=== PATIENT | male | born 1955 | race Caucasian/White ===

== ENCOUNTER 2017-01-31 16:12 | Emergency (ER) | payer OTHER ==
[~2017-01-31] VITALS: Ht 160 cm; Wt 63.6 kg
[~2017-01-31 16:12] MED LIST: NOCURR
[2017-01-31 17:40] LABS: BASOPHILS % (AUTO) 0.4 % (0.0-2.0); EOSINOPHILS % (AUTO) 0.7 % (1.0-6.0); HEMATOCRIT 27.5 % (41-53); HEMOGLOBIN 9.7 g/dL (13.5-17.5); LYMPHOCYTES # (AUTO) 1.1 K/uL (1.0-4.8); LYMPHOCYTES % (AUTO) 15.3 % (22.0-44.0); MEAN CORPUSCULAR HEMOGLOBIN 30.8 pg (26.0-34.0); MEAN CORPUSCULAR HGB CONC 35.4 G/dL (31.0-37.0); MEAN CORPUSCULAR VOLUME 87 fL (80-100); MONOCYTES # (AUTO) 0.9 K/uL (0.1-1.0); MONOCYTES % (AUTO) 12.4 % (2.0-9.0); NEUTROPHILS # (AUTO) 5.2 K/uL (1.8-7.7); NEUTROPHILS % (AUTO) 71.2 % (40.0-70.0); PLATELET COUNT (AUTO) 127 K/uL (150-450); RED BLOOD CELL COUNT(AUTO) 3.16 MIL/uL (4.50-5.90); RED CELL DISTRIBUTION WIDTH 17.9 % (11.5-14.5); WHITE BLOOD COUNT (AUTO) 7.3 K/uL (4.5-11.0)
[2017-01-31 17:41] LABS: RBC MORPHOLOGY COMMENT ABNORMAL RBC MORPH
[2017-01-31 17:50] LABS: CALCIUM, TOTAL 7.2 mg/dL (8.8-10.5); CREATININE 1.24 mg/dL (0.60-1.30); POTASSIUM 3.5 mmol/L (3.5-5.1)
[2017-01-31 17:57] LABS: INR 2.9 (0.9-1.1); PROTHROMBIN TIME 30.7 SEC (9.4-11.6)
[2017-01-31 18:01] LABS: ALBUMIN 1.6 g/dL (3.4-5.0); BILIRUBIN,TOTAL 19.5 mg/dL (0.1-1.0); TOTAL PROTEIN, SERUM 7.4 g/dL (6.4-8.2)
[2017-01-31 19:10] VITALS: BP 118/72
[2017-01-31 19:43] LABS: APPEARANCE,URINE CLOUDY (CLEAR); GLUCOSE, URINE (UA) NEGATIVE (NEGATIVE); KETONES,URINE NEGATIVE (NEGATIVE); LEUKOCYTE ESTERASE ,URINE TRACE (NEGATIVE); OCCULT BLOOD,URINE NEGATIVE (NEGATIVE); PROTEIN,URINE NEGATIVE (NEGATIVE)
[2017-01-31 19:50] LABS: ADD UA MICROSCOPIC YES
[2017-01-31 20:10] LABS: FINE GRANULAR CASTS,URINE 0-2 /LPF (None Seen); RBC,URINE 0-2 /HPF (0-2); SQUAMOUS EPITHELIAL CELL,UR Rare /LPF (None Seen)
[2017-01-31 20:11] LABS: AMORPHOUS SEDIMENT,UR Few /LPF (None Seen); OTHER CASTS, URINE WBC CASTS 1+ /LPF (None Seen)
== END 2017-01-31 19:17 | disposition left against medical advice (07) ==
LOC: EMS 16:15
DX: K72.90 Hepatic failure, unspecified without coma (principal); K75.9 Inflammatory liver disease, unspecified; R17 Unspecified jaundice; F11.90 Opioid use, unspecified, uncomplicated; F17.210 Nicotine dependence, cigarettes, uncomplicated
CPT/HCPCS: 36415; 80053; 81001; 83690; 85025; 85610; 85730; 99285; G0480

== ENCOUNTER 2017-05-27 02:28 | Emergency (ER) | payer OTHER ==
[~2017-05-27] VITALS: Ht 162.6 cm; Wt 61.0 kg
[2017-05-27] MEDS ORDERED: PANT40TA25 PO (02:41)
[2017-05-27] MEDS ORDERED: FOLI1 PO (02:41)
[2017-05-27] MEDS ORDERED: ACET-784 PO (02:41)
[2017-05-27] MEDS ORDERED: URSO300C4 PO (02:41)
[2017-05-27] MEDS ORDERED: HYPR15DR23 OU (02:41)
[2017-05-27] MEDS ORDERED: FURO20 PO (02:41)
[2017-05-27] MEDS ORDERED: RIFAX550 PO (02:41)
[2017-05-27] MEDS ORDERED: MOM30 PO (02:41)
[2017-05-27] MEDS ORDERED: LACT1CAP62 PO (02:41)
[2017-05-27] MEDS ORDERED: BISA10S PR (02:41)
[2017-05-27] MEDS ORDERED: LACT30L PO (02:41)
[2017-05-27] MEDS ORDERED: MAGN500T4 PO (02:41)
[2017-05-27] MEDS ORDERED: CYCLOBENZAPRINE HCL 10 MG TABLET PO ONE (03:00)
[2017-05-27] MEDS ORDERED: KETOROLAC TROMETHAMINE 30 MG/ML VIAL IM ONE (03:00)
[2017-05-27 03:46] VITALS: BP 128/76
== END 2017-05-27 04:20 | disposition home or self-care (01) ==
LOC: EMS 02:29
DX: M62.830 Muscle spasm of back (principal); G89.29 Other chronic pain; F17.210 Nicotine dependence, cigarettes, uncomplicated; F11.10 Opioid abuse, uncomplicated; Z79.899 Other long term (current) drug therapy
CPT/HCPCS: 96372; 99283; J1885

== ENCOUNTER 2017-05-27 18:49 | Emergency (ER) | payer OTHER ==
[~2017-05-27] VITALS: Ht 162.6 cm; Wt 63.6 kg
[~2017-05-27 18:49] MED LIST changes: +ACET-784 PO; +BISA10S PR; +FOLI1 PO; +FURO20 PO; +HYPR15DR23 OU; +LACT1CAP62 PO; +LACT30L PO; +MAGN500T4 PO; +MOM30 PO; -NOCURR; +PANT40TA25 PO; +RIFAX550 PO; +URSO300C4 PO
[2017-05-27] MEDS ORDERED: KETOROLAC TROMETHAMINE 60 MG/2 ML VIAL IM ONE (20:30)
[2017-05-27] MEDS ORDERED: CYCLOBENZAPRINE HCL 10 MG TABLET PO ONE (20:30)
[2017-05-27 20:58] VITALS: BP 126/82
== END 2017-05-27 20:59 | disposition home or self-care (01) ==
LOC: EMS 18:52
DX: S13.4XXA Sprain of ligaments of cervical spine, initial encounter (principal); M62.838 Other muscle spasm; K21.9 Gastro-esophageal reflux disease without esophagitis; F11.90 Opioid use, unspecified, uncomplicated; F17.210 Nicotine dependence, cigarettes, uncomplicated; X58.XXXA Exposure to other specified factors, initial encounter; Y93.89 Activity, other specified; Y92.89 Other specified places as the place of occurrence of the external cause; Y99.8 Other external cause status
CPT/HCPCS: 96372; 99283; J1885

== ENCOUNTER 2017-12-03 12:44 | Emergency (ER) | payer OTHER ==
[~2017-12-03] VITALS: Ht 162.6 cm; Wt 63.6 kg
[2017-12-03 13:47] VITALS: BP 151/83
[2017-12-03] MEDS ORDERED: METHOCARBAMOL 500 MG TABLET PO ONE (14:00)
[2017-12-03] MEDS ORDERED: KETOROLAC TROMETHAMINE 60 MG/2 ML VIAL IM ONE (14:00)
== END 2017-12-03 14:40 | disposition home or self-care (01) ==
LOC: EMS 12:45
DX: M25.552 Pain in left hip (principal); R03.0 Elevated blood-pressure reading, without diagnosis of hypertension; K21.9 Gastro-esophageal reflux disease without esophagitis; F17.210 Nicotine dependence, cigarettes, uncomplicated; F11.90 Opioid use, unspecified, uncomplicated
CPT/HCPCS: 96372; 99283; J1885